=== PATIENT | female | born 1995 | race Hispanic/Latino ===

== ENCOUNTER 2017-03-03 18:44 | Emergency (ER) | payer SELFPAY ==
[2017-03-03 19:47] LABS: Bilirubin Negative (Negative); Blood, Urine Negative (Negative); Glucose, Urine (Dipstick) Negative (Negative); Ketone, Urine Negative (Negative); Nitrite Negative (Negative); Protein, Urine (Dipstick) Negative (Neg-Trace)
--- NOTE | 2017-03-03 20:43 | ULT ---
RIGHT UPPER QUADRANT ULTRASOUND: Clinical history: Pain. FINDINGS: Low level echoes of the gallbladder lumen are present. The gallbladder is contracted. No gallbladder wall thickening or common duct dilatation. The liver is prominent in size measuring between 17 and 18 cm in length. Stapleton's sign is reported as negative. There is limited assessment of the right upp er quadrant due to areas of shadowing from bowel content. There is a slight increased echogenicity o f the hepatic echotexture which could be on the basis of hepatic steatosis. IMPRESSION: 1. Low level echoes of the gallbladder which may relate to sludge. The gallbladder is contracted whi ch does limit assessment. Otherwise, no definite signs for acute cholecystitis. 2. Additional details as above. POS: [place]
[2017-03-03 21:12] LABS: #Eosinphils 0.1 thou/uL (0.0-0.7); #Monocytes 0.5 thou/uL (0.11-0.59); #Neutrophils 3.9 thou/uL (1.40-6.50); %Basophils 0.6 % (0.0-1.0); %Eosinophils 1.8 % (0.0-10.0); Hematocrit 39.2 % (36.0-47.0); Mean Platelet Volume 8.6 fL (7.4-10.4); White Blood Cell (WBC) Count 7.6 thou/uL (4.8-10.8)
[2017-03-03 21:26] LABS: ALT (SGPT) 17 U/L (8-55); AST (SGOT) 14 U/L (5-34); Alkaline Phosphatase 86 U/L (40-150); Anion Gap 12 mmol/L (10-20); BUN (Urea Nitrogen) 10 mg/dL (7.0-18.7); Bilirubin, Total 0.3 mg/dL (0.2-1.2); Calc. Creatinine Clearance 0 mL/min (70-130); Calcium 8.9 mg/dL (7.8-10.44); Carbon Dioxide 26 mmol/L (22-29); Chloride 105 mmol/L (98-107); Estimated GFR-MDRD Greater than 90; Globulin 3.2 g/dL (2.4-3.5); Lipase 10 U/L (8-78); Protein, Total 7.2 g/dL (6.0-8.3)
== END 2017-03-03 22:25 | disposition home or self-care (01) ==
LOC: ERS 18:44
DX: R10.13 Epigastric pain (principal)
CPT/HCPCS: 36415; 76705; 80053; 81003; 81025; 83690; 85025

== ENCOUNTER 2019-01-19 13:52 | Emergency (ER) | payer SELFPAY | END 2019-01-19 14:55 | disposition home or self-care (01) | LOC: ERS 13:52 | DX: S46.912A Strain of unspecified muscle, fascia and tendon at shoulder and upper arm level, left arm, initial encounter (principal); S39.012A Strain of muscle, fascia and tendon of lower back, initial encounter; S86.912A Strain of unspecified muscle(s) and tendon(s) at lower leg level, left leg, initial encounter; V89.2XXA Person injured in unspecified motor-vehicle accident, traffic, initial encounter | CPT/HCPCS: 99283 ==